=== PATIENT | male | born 1980 | race Caucasian/White ===

== ENCOUNTER 2023-12-25 08:03 | Emergency (ER) | payer BC, SELFPAY ==
[2023-12-25 08:11] VITALS: BP 157/89; PULSE 86; RESP 16; TEMP 36.7; O2SAT 97; BMI 30.9
--- NOTE | 2023-12-25 08:16 | PD.EDRME ---
Rapid Medical Screening Exam RME Arrival date/time: 12/25/23 08:03 43-year-old male type I diabetic presents to the emergency department complaint of constipation patient reports that he has tried multiple [id number] medications as well as prescription medication without success to have a bowel movement over the last 2 weeks Chief Complaint: General Adult/Misc Complain Time Seen by Provider: 12/25/23 08:06 Vital signs: Vital Signs Temperature 98.1 F 12/25/23 08:11 Pulse Rate 86 12/25/23 08:11 Respiratory Rate 16 12/25/23 08:11 Blood Pressure 157/89 H 12/25/23 08:11 Pulse Oximetry (%) 97 12/25/23 08:11 Oxygen Delivery Method Room Air 12/25/23 08:11
--- NOTE | 2023-12-25 08:30 | PC.NURSE ---
pt came for complaints of abdominal pain and constipation. Pt states he hasnt had a bowel movement in 3 weeks.
[2023-12-25 08:50] LABS: Collection Type, Urine Clean Catch; Squamous Epithelial Cell,Urine 0 /hpf (0-5)
[2023-12-25 08:53] LABS: Basophils # (Auto) 0.1 Thou/mm3 (0.0-0.2); Basophils % (Auto) 1 % (0-2.5); Eosinophils # (Auto) 0.1 Thou/mm3 (0.0-0.5); Eosinophils % (Auto) 2 % (0-10); Hematocrit 42.4 % (41.0-53.0); Hemoglobin 15.8 g/dL (13.5-16.0); Immature Granulocytes % (Auto) 0 % (0-0); Immature Granulocytes Auto 0.01 Thou/mm3 (0.00-0.00); Lymphocytes % (Auto) 28 % (10-50); Mean Corpuscular HGB Conc 37.3 g/dl (31.0-37.0); Mean Corpuscular Hemoglobin 32.8 pg (25.0-35.0); Mean Corpuscular Volume 88 fL (80-100); Monocytes # (Auto) 0.6 Thou/mm3 (0.0-0.8); Monocytes % (Auto) 9 % (0-12); Neutrophils # (Auto) 4.1 Thou/mm3 (1.8-7.7); Neutrophils % (Auto) 60 % (37-80); Nucleated Red Blood Cell % 0 /100 WBC (0); Platelet Count 293 Thou/mm3 (140-440); RDW Standard Deviation 36.3 fL (35.1-43.9); Red Blood Count 4.82 Miln/mm3 (4.50-5.90); White Blood Count 6.9 Thou/mm3 (3.8-10.6)
[2023-12-25 08:55] LABS: Bilirubin,Urine Negative (Negative); Blood,Urine Negative (Negative); Clarity,Urine Clear (Clear/Hazy); Color,Urine Colorless (Lt Yel-Yel); Culture Indicated,Urine Not Indicated; Glucose, Urine Trace (Negative); Ketones,Urine Negative (Negative); Leukocyte Esterase,Urine Negative (Negative); Nitrite,Urine Negative (Negative); PH,Urine 7.5 (5.0-7.0); Protein,Urine Negative (Neg - Trace); RBC,Urine < 1 /hpf (0-3); Specific Gravity,Urine 1.008 (1.001-1.035); Urobilinogen,Urine Negative mg/dL (0.0-1.0); WBC,Urine < 1 /hpf (0-5)
[2023-12-25 09:13] LABS: Glucose Estimated Average 143 mg/dL (80-131); Hemoglobin A1C 6.6 % Hgb (4.8-6.0)
[2023-12-25 09:15] LABS: Alanine Aminotransferase 37 U/L (10-49); Albumin, Serum 4.5 gm/dL (3.5-5.0); Albumin/Globulin Ratio 1.5 (1.2-2.2); Alkaline Phosphatase 75 U/L (46-116); Anion Gap 1 (7-16); Aspartate Amino Transferase 22 U/L (0-34); BUN/Creatinine Ratio 9 Ratio (12-20); Bilirubin,Total 0.8 mg/dL (0.3-1.2); Blood Urea Nitrogen 8 mg/dL (9-23); Calcium 9.6 mg/dL (8.3-10.6); Calcium (Corrected) 9.6 mg/dL (8.5-10.1); Carbon Dioxide 31.3 mMol/L (20.0-31.0); Chloride 100 mMol/L (98-107); Creatinine (Component) 0.9 mg/dL (0.6-1.3); Estimated Creatinine Clearance 136.7 mL/min (>60); Globulin 3.1 gm/dL (2.3-3.5); Glucose 193 mg/dL (74-106); Lipase 30 U/L (12-53); Osmolality,Calculated 267 (275-295); Potassium 4.5 mMol/L (3.4-5.1); Sodium 132 mMol/L (136-145); Total Protein 7.6 gm/dL (5.7-8.2); eGFR > 60 See Note
--- NOTE | 2023-12-25 09:37 | PD.EDABDPN ---
ED Abdominal Pain RME/HPI General Chief Complaint: General Adult/Misc Complain Stated complaint: NO BOWEL MOVEMENT X 3 WKS Time seen by provider: 12/25/23 08:06 Arrival date/time: 12/25/23 08:03 RME / HPI RME / HPI narrative: 12/25/23 08:03 43-year-old male type I diabetic presents to the emergency department complaint of constipation patient reports that he has tried multiple hgva-toz-gcsqamt medications as well as prescription medication without success to have a bowel movement over the last [address] COOLEY MAIN ED EVALUATION: 43 year old male with history of hypertension, T1DM presents to the ED for complaint of abdominal pain and constipation today. Reportedly has not had a bowel movement in ~ 3 weeks that is accompanied by aching bloating pain. Consulted with PCP Doris Moreno 2 weeks ago and was prescribed Linzess, Lactulose, and fleet enema's. States he has passed just water , no stool. States he continues to eat but is a lesser amount. Additionally reports he had an xray of his abdomen several days ago showing moderate to large amounts of stool in the colon. Denies any history of similar symptoms. Denies fevers, chills, chest pain, cough, shortness of breath, vomiting, or urinary symptoms. Related Data Home Medications ?Medication ?Instructions ?Recorded ?Confirmed duloxetine 60 mg capsule,delayed 60 mg PO HS #0 caps 05/12/14 release (Cymbalta) insulin glargine 100 unit/mL 20 unit subcut HS #0 vials 05/12/14 subcutaneous solution (Lantus U-100 Insulin) insulin lispro 100 unit/mL 10 unit subcut QDAY #0 vials 05/12/14 subcutaneous solution (Humalog U-100 Insulin) Allergies Allergy/AdvReac Type Severity Reaction Status Date / Time No Known Allergies Allergy Unknown Uncoded 05/13/14 07:44 Review of Systems Review of Systems Narrative Review of Systems: Constitutional: DENIES; Fevers Eyes: DENIES; Loss of vision Head/Ear/Nose: DENIES; Loss of hearing Throat: DENIES; Dysphagia Cardiovascular: DENIES; Chest pain, dyspnea or syncope Respiratory: DENIES; Shortness of breath Gastrointestinal: SEE HPI +abd pain, constipation Genitourinary: DENIES; Dysuria (painful or difficult urination) Musculoskeletal: DENIES; Arthralgia (pain in a joint),; Skin: DENIES; Rash Neurological: DENIES; Loss of function or movement Psychiatric: DENIES; recent major life stressor, emotional problem, illicit drug use or abuse Endocrinology: DENIES; Weight change Hematologic/Lymphatic: DENIES; Abnormal bruising Allergic/Immunologic: DENIES; Urticaria (hives) Past Medical History Past Medical History CARDIAC: Positive Hypertension; Negative Congestive Heart Failure RESPIRATORY: Negative Chronic Obstructive Pulmonary Disease (COPD) GENITOURINARY: Negative Renal Disease ENDOCRINE: Positive Diabetes Mellitus Type 1; Negative Diabetes Mellitus Type 2 Social History SMOKING STATUS: Heavy (> 1 pack/day) ED Exam Narrative Physical exam: Physical Exam: General: The vital signs were reviewed. The patient is non-toxic, in no apparent distress and appears healthy with a patent airway, no respiratory distress and has no apparent circulatory problems. Head & Scalp: Normocephalic, atraumatic. Face: Appears normal and is without lesions, deformity. Ears: Left external pinna appears normal. Right external pinna appears normal. Eyes: The sclera is anicteric. No obvious photophobia. The Left and Right Orbit/Lid/Conjunctiva appears normal without swelling, discoloration or injection. Nose: The nose is without deformity, discharge or tenderness; Throat: Appears normal. The mucous membranes are pink and moist without exudates, redness or mass seen. The tongue appears normal. Neck: The neck is supple and no apparent mass or adenopathy. Chest: The chest wall is normal in size and symmetry and has no chest wall tenderness or crepitus. The patient displays normal ventilator effort without retractions, accessory muscle use and has adequate air movement bilaterally with no wheezes and no rales. Cardiovascular: Regular rate and rhythm; No murmurs, rubs, or gallops; Gastrointestinal: The abdomen appears normal. No obvious hernias or mass. The abdomen is soft and benign, non-distended, with no pain, no guarding and no rebound tenderness. Bowel sounds are present and normal sounding. No CVA tenderness. Rectal exam: Performed in presence of RN. There is no stool in the vault. Genitourinary: Back/Spine: Extremities/Musculoskeletal/lymphatic: The bilateral upper and lower extremities are warm. There is no evidence of arterial insufficiency. There is no evidence of venous insufficiency/edema. The patient spontaneously moves bilateral upper and lower extremities with no pain and no limitation of movement. There is no apparent, injury or trauma. Skin: The skin is warm, dry and intact. No rashes. No petechia. No purpura. No abnormal bruising. The color is appropriate with no cyanosis. Mental status/Psychiatric: Mental status is appropriate for age. The patient has no apparent delusions, visual hallucinations, no apparent audible hallucinations. The patient has no apparent suicidal thoughts/ideation and no apparent homicidal thoughts/ideation. Neurological: The patient is awake, alert, interactive, cordial, cooperative and is oriented to name and situation. The patient follows commands and answers historical question with no impairment. There is no visual disturbance apparent. The pupils are equal and reactive bilaterally with normal eye movements and no diplopia The bilateral upper and lower extremities have normal strength, normal range of motion and normal functioning. Course Quality Measures none Orders Category Date Time Status CT Screening NOW Care 12/25/23 09:44 Completed Soap Suds [Enema Administration] NOW Care 12/25/23 08:[address] abdomen pelvis w con Stat Exams 12/25/23 09:44 Completed A1C [Glycohemoglobin w (eAG)] Stat Lab 12/25/23 08:47 Completed CBC Stat Lab 12/25/23 08:47 Completed Comprehensive Metabolic Panel Stat Lab 12/25/23 08:47 Completed Lipase Stat Lab 12/25/23 08:47 Completed UA, C/S IF [Urinalysis, C/S if Indicated] Stat Lab 12/25/23 08:43 Completed Ringers Lactated 1000 ml [Lactated Ringers] 1,000 ml Med 12/25/23 09:44 Discontinued IV 999 mls/hr Sodium Chloride 0.9% 1000 ml [Ns] 1,000 ml Med 12/25/23 10:38 Discontinued IV 999 mls/hr Vital Signs Vital signs: Vital Signs Temperature 98.1 F 12/25/23 08:11 Pulse Rate 86 12/25/23 08:11 Respiratory Rate 16 12/25/23 08:11 Blood Pressure 157/89 H 12/25/23 08:11 Pulse Oximetry (%) 97 12/25/23 08:11 Oxygen Delivery Method Room Air 12/25/23 08:11 Pulse ox is 97% on room air which is adequate. Abdominal Pain MDM MDM Narrative MDM Narrative:: I, Janis Bear, am scribing for and in the presence of Dr. Cooley. Patient presents with no bowel movement for 3 weeks and seeing her doctor and had some trial of cathartic with no success. Today we had soapsuds enema with minimal results. Patient is a type I diabetic but does not appear to be sick in any other way. Vital signs were within normal is other than hypertension. CBC came back within normal limits CHEM panel came back with sodium 132 potassium 4.5 chloride 100 CO2 slight elevated 31.3. BUN is 8 creatinine is 0.9. Glucose was 193 transaminases bilirubin are normal urine came back specific gravity of 1.008 rest of the UA is unremarkable. CT scan came back essentially negative with no bowel obstruction no acute finding at all. Reevaluation of the patient shows his abdomen to be soft benign he does give a history of when he eats he feels bloating immediately and his p.o. intake has somewhat decreased his last to 3 weeks. He also reported he had an appointment with his doctor tomorrow and Dr. Maya's office and tried to reach Paul' but patient evidently left without waiting for callback. Later his mom called asked what was going on told her that he had left without completing the visit. Patient was aware that CAT scan essentially was negative and there is no serious or acute finding today. Also the differential diagnosis and concern for possible gastroparesis since he has upper abdominal symptoms with eating and he is a type I diabetic and maybe his poor p.o. intake is the etiology for his constipation. Nonetheless his labs are adequate and he left without closing the visit. Patient data External records reviewed:: Other (specify) (No previous ED visits for review) Clinical information provided by:: patient Social determinants that could affect healthcare access:: none Patient has the following chronic illnesses:: HTN, T1DM How is presenting disease/condition affected by chronic disease/condition?: uneffected by Evaluation data The following diagnostics were reviewed and interpreted by me:: lab results and radiology exam(s) Lab and/or radiology exams considered but not ordered:: None Interpretation Summary: See above under MDM narrative. RADIOLOGY Procedure(s): CT abdomen pelvis w con Accession Number(s): [id number] cc: Yosef Cooley MD; Iggy Hodges MD; Doris Moreno PA-C~ Examination: CT abdomen with intravenous contrast CT pelvis with intravenous contrast 2-D coronal reconstructions 2-D sagittal reconstructions Date and time of exam:December 25, 2023 1113 hours INDICATIONS: Constipation no bowel movement 3 weeks. CTDI: vol (mGy) 21.9 DLP: (mGycm) 985 Technique: Multiple axial sections of the abdomen and pelvis have been obtained. 64 slice high-resolution scanner used. 3 mm axial sections have been obtained, post intravenous injection 60 cc [id number] 2-D sagittal coronal reconstructions 3-D reconstructions Nodose protocols, adjustment KV and MA according to patient size, iterative reconstruction techniques FINDINGS: There is fatty infiltration throughout the liver no focal liver lesions No gallstones Spleen pancreas adrenal glands not enlarged No renal or ureteral calculi, no hydronephrosis Aorta normal size No pericecal inflammatory change Moderate air and stool in the colon No obstruction No diverticulitis Moderately distended urinary bladder No prostatomegaly Osseous structures intact IMPRESSION: Moderate air and stool throughout the colon, no obstruction Dictated By: Iggy Hodges MD Medications / Prescriptions Medications or Prescriptions considered but not ordered:: None Medication administrations:: Medication Administration History Discontinued Medications Lactated Ringer's (Lactated Ringers) 1,000 mls @ 999 mls/hr IV .Q1H1M ONE Stop: 12/25/23 10:44 Last Admin: 12/25/23 10:39 Dose: Not Given Documented By: TESSA Non-Admin Reason: Cancelled by Provider Sodium Chloride (Ns) 1,000 mls @ 999 mls/hr IV .Q1H1M ONE Stop: 12/25/23 11:38 Last Infusion: 12/25/23 13:49 Dose: Infused Documented By: Admin: 12/25/23 10:45 Dose: 999 mls/hr Documented By: CHERYLE See above Consultations Consultation(s) initiated? (list below): No Diagnosis Differential diagnosis abdominal pain: abdominal pain, constipation and small bowel obstruction Most likely diagnosis given after review of the tests above:: Patient eloped Admission Indicated Admission indicated?: not indicated Explain why admission is indicated or not indicated:: Patient eloped. Admission Request Was there a request for admission?: No Disposition Plan Disposition Plan: other (specify) (Patient eloped) Discharge Plan Plan Patient Disposition: Elopement Prescriptions/Referrals Prescriptions/Med Rec: No Action insulin glargine [Lantus U-100 Insulin] 100 U/ML solution 20 unit Sub-Q HS Qty: 0 insulin lispro [Humalog U-100 Insulin] 100 U/ML solution 10 unit Sub-Q QDAY Qty: 0 duloxetine [Cymbalta] 60 MG capsule,delayed release(DR/EC) 60 mg PO HS Qty: 0 Referrals: Doris Moreno PA-C [Primary Care Provider] - In 1 week Problem List Clinical Impression: Acute constipation, Type 1 diabetes Patient/Caregiver Discharge Instructions Print Language: Bots[place]an
--- NOTE | 2023-12-25 09:44 | XR_ITS ---
Examination: CT abdomen with intravenous contrast CT pelvis with intravenous contrast 2-D coronal reconstructions 2-D sagittal reconstructions Date and time of exam:December 25, 2023 1113 hours INDICATIONS: Constipation no bowel movement 3 weeks. CTDI: vol (mGy) 21.9 DLP: (mGycm) 985 Technique: Multiple axial sections of the abdomen and pelvis have been obtained. 64 slice high-resolution scanner used. 3 mm axial sections have been obtained, post intravenous injection 60 cc [id number] 2-D sagittal coronal reconstructions 3-D reconstructions Nodose protocols, adjustment KV and MA according to patient size, iterative reconstruction techniques FINDINGS: There is fatty infiltration throughout the liver no focal liver lesions No gallstones Spleen pancreas adrenal glands not enlarged No renal or ureteral calculi, no hydronephrosis Aorta normal size No pericecal inflammatory change Moderate air and stool in the colon No obstruction No diverticulitis Moderately distended urinary bladder No prostatomegaly Osseous structures intact IMPRESSION: Moderate air and stool throughout the colon, no obstruction
--- NOTE | 2023-12-25 10:30 | PC.NURSE ---
patient went to bathroom no bm per patient
[2023-12-25] MEDS: SODIUM CHLORIDE 0.9% 1000 ML 1,000 ML 999 ML IV (10:45)
[2023-12-25 15:00] VITALS: BP 162/96; PULSE 82; RESP 16; TEMP 37.2; O2SAT 94
--- NOTE | 2023-12-25 15:01 | PC.NURSE ---
Patient lying in rinez queitly, texting on his phone, patient states pain to lower abd. has decreased to 5/10 at this time. Patient states he has not had a bm after administration of soap suds enema, will notify provider, call light within reach.
[2023-12-25 16:14] VITALS: BP 157/91; PULSE 77; RESP 18; TEMP 37.1; O2SAT 95
--- NOTE | 2023-12-25 16:54 | PC.NURSE ---
patient left er without receiving d/c paperwork and ivl in place, left message for patient to return to er to remove ivl, will call [facility] for well check and to inform patient to return to ed.
--- NOTE | 2023-12-25 16:59 | PC.NURSE ---
called [facility], spoke with Rosaura, will send officer to patients house for well check.
== END 2023-12-25 17:00 | disposition left against medical advice (07) ==
PROVIDERS: Nurse Practitioner Primary Care; Emergency Provider Emergency Medicine; PCP Physician Assistant
DX: K59.09 Other constipation (principal); E10.9 Type 1 diabetes mellitus without complications; Z79.4 Long term (current) use of insulin; Z53.29 Procedure and treatment not carried out because of patient's decision for other reasons
CPT/HCPCS: 36415; 74177; 80053; 81001; 83036; 83690; 85025; 96360; 96361; 99284; A4649; J7030; Q9967

== ENCOUNTER 2024-08-29 12:50 | Day surgery (SDC) | payer BC, SELFPAY ==
[2024-08-28 13:29] VITALS: BMI 35.2
[2024-08-29] VITALS (9 sets, daily range): BP systolic 110–173; BP diastolic 89–104; PULSE 78–95; RESP 12–18; TEMP 36.4–36.5; O2SAT 94–99; BMI 34.4
[2024-08-29] MEDS: SODIUM CHLORIDE 0.9% 500 ML 500 ML 20 ML IV (14:11)
[2024-08-29] MEDS: fentaNYL CIT INJ 50 mCg/ML AMP 2ML (ASD USE ONLY) IVP (14:18)
[2024-08-29] MEDS: MIDAZOLAM INJ 1 MG/ML VIAL 2 ML (ASD USE ONLY) 2 MG IVP (14:18)
--- NOTE | 2024-08-29 15:27 | SUR.PHASEII ---
1430 patient into recovery with no acute distress noted, v/s stable, no complaints of pain or nausea at this time, patient actively passing flatus, report received from linda ramsey. 1440 patient repositions self for comfort, patient denies pain and nausea, patient continues to pass flatus. 1450 patient drinking 7up with no difficulty. 1505 patient ambulates to bathroom with no assistance needed, with a steady gait. 1510 patient in wheelchair awaiting mother's arrival. 1515 d/c instructions given to patient and patient's mother 1520 patient D/C home.
== END 2024-08-29 15:20 | disposition home or self-care (01) ==
PROVIDERS: PCP Physician Assistant; Referring Provider Specialist; Visit Provider Specialist
PROC: 0DBE8ZX Excision of Large Intestine, Via Natural or Artificial Opening Endoscopic, Diagnostic (ICD-10-PCS; CPT 45380; principal; 2024-08-29 13:00)
DX: D12.5 Benign neoplasm of sigmoid colon (principal); K64.9 Unspecified hemorrhoids; E11.9 Type 2 diabetes mellitus without complications; I10 Essential (primary) hypertension
CPT/HCPCS: 45385; 45380; J1200; J2250; J3010; J7999

== ENCOUNTER 2024-11-19 10:00 | Day surgery (SDC) | payer BC, SELFPAY ==
[2024-11-18 15:01] VITALS: BMI 35.2
[2024-11-19] VITALS (8 sets, daily range): BP systolic 139–178; BP diastolic 80–110; PULSE 79–99; RESP 8–19; TEMP 36.3–36.8; O2SAT 93–99; BMI 34.4
[2024-11-19] MEDS: BENZOCAINE 20% (Hurricaine) SPRAY 1 DOSE TOP (12:02)
[2024-11-19] MEDS: SODIUM CHLORIDE 0.9% 500 ML 500 ML 20 ML IV (12:02)
[2024-11-19] MEDS: fentaNYL CIT INJ 50 mCg/ML AMP 2ML (ASD USE ONLY) IVP (12:05)
[2024-11-19] MEDS: MIDAZOLAM INJ 1 MG/ML VIAL 2 ML (ASD USE ONLY) 2 MG IVP (12:05)
--- NOTE | 2024-11-19 13:30 | SUR.PHASEII ---
1245 Pt more awake and alert. Denies pain,N/V or difficulty swallowing. Robert Po fluids. 1311 Pt assessment unchanged. No complaints. Amb with steady gait. Able to dress self. Pt and mother given dc instructions. Aware of 2 new prescriptions, to be picked up at [facility]. Both state understanding. Pt meets dc criteria-to home.
== END 2024-11-19 13:11 | disposition home or self-care (01) ==
PROVIDERS: PCP Physician Assistant; Referring Provider Specialist; Visit Provider Specialist
PROC: (CPT 43239; principal; 2024-11-19 09:30)
DX: K29.50 Unspecified chronic gastritis without bleeding (principal); K20.90 Esophagitis, unspecified without bleeding; K31.89 Other diseases of stomach and duodenum; Z86.0101 Personal history of adenomatous and serrated colon polyps
CPT/HCPCS: 43239; A4649; J1200; J2250; J3010; J7999; A9270